=== PATIENT | female | born 1970 | race Caucasian/White ===

== ENCOUNTER 2020-06-24 07:24 | Day surgery (SDC) | payer BC ==
[~2020-06-24 07:24] MED LIST: Lactated Ringers 1,000 ML IV SCH; Lidocaine 1% 4 ML ONE; Lidocaine 1%/Sod Bicarbonate in NS 8.4% 1 ML Syringe IDERM PRN; Midazolam 1 MG/ML 2 ML SDV ONE; Propofol 200 MG/20 ML SDV ONE; Scopolamine 1.5 MG Transdermal Patch TRDERM PRN; Sodium Chloride 0.9% 10 ML Syringe FLUSH PRN
--- NOTE | 2020-06-24 07:37 | PCM.PREANE ---
Preanesthetic Assessment - Procedure Proposed Procedure: diag colonoscopy - Anesthesia/Transfusion/Family Hx Anesthesia History: Prior Anesthesia Without Reaction Family History of Anesthesia Reaction: No Transfusion History: No Prior Transfusion(s) - Review of Systems General: No Symptoms Pulmonary: No Symptoms Cardiovascular: No Symptoms Gastrointestinal: No Symptoms Neurological: Seizure (26 years ago.) Other: Reports: Diabetes (pre), Liver Problems (from seizure meds- they are watching), Thyroid Problems, Depression, Anxiety - Physical Assessment NPO Status Date: 06/24/20 NPO Status Time: 05:30 (12 oz water) Vital Signs: 16 83 142/87 97.1 Height: 5 ft 4 in Weight: 125 kg ASA Class: 3 Mental Status: Alert & Oriented x3 Airway Class: Mallampati = 1 Dentition: Reports: Normal Dentition Thyro-Mental Finger Breadths: 3 Mouth Opening Finger Breadths: 3 ROM/Head Extension: Full Lungs: Clear to Auscultation, Normal Respiratory Effort Cardiovascular: Regular Rate, Regular Rhythm - Lab Values: Laboratory Last Values POC Glucose 110 mg/dL (70-105) H 06/24/20 07:20 - Allergies Allergies/Adverse Reactions: Allergies Allergy/AdvReac Type Severity Reaction Status Date / Time nitrofurantoin Allergy Cannot Verified 06/23/20 10:39 [From Macrobid] Remember phenytoin sodium Allergy Rash Verified 06/23/20 10:39 [From Dilantin] phenytoin sodium extended Allergy Rash Verified 06/23/20 10:39 [From Dilantin] Sulfa (Sulfonamide Allergy Rash Verified 06/23/20 10:39 Antibiotics) sulfamethoxazole Allergy Cannot Verified 06/23/20 10:39 [From Bactrim] Remember trimethoprim [From Bactrim] Allergy Cannot Verified 06/23/20 10:39 Remember - Blood Blood Available: No - Anesthesia Plan Beta Elva: Metoprolol Med Last Dose Date: 06/24/20 Med Last Dose Time: 06:15 - Acknowledgements Anesthesia Type Planned: MAC Pt an Appropriate Candidate for the Planned Anesthesia: Yes Alternatives and Risks of Anesthesia Discussed w Pt/Guardian: Yes Pt/Guardian Understands and Agrees with Anesthesia Plan: Yes PreAnesthesia Questionnaire HEENT History: Reports: Impaired Vision Other HEENT History: wears contacts/glasses Cardiovascular History: Reports: High Cholesterol, Hypertension Other Cardiovascular History: palpitations Respiratory History: Reports: Sleep Apnea Other Respiratory History: upper respiratory infection, bronchitis, cough Gastrointestinal History: Reports: Diverticulosis, Other (See Below) Other Gastrointestinal History: bloating Genitourinary History: Reports: Other (See Below) Other Genitourinary History: bladder infection, elevated creatinine [employer]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: Endometrial Ablation, Other OB/BYN History: hot flashes, irregular menses, menorrhagia, monarch sling procedure Musculoskeletal History: Reports: Arthritis Other Musculoskeletal History: chronic neck "muscle tightness" pain Neurological History: Reports: Headaches, Chronic Other Neuro History: epilepsy, garcia's palsy, tension headaches, motion sickness Psychiatric History: Reports: Anxiety Endocrine/Metabolic History: Reports: Obesity/BMI 30+, Vitamin D Deficiency Other Endocrine/Metabolic History: pre-DM Hematologic History: Reports: None Immunologic History: Reports: None Oncologic (Cancer) History: Reports: None Dermatologic History: Reports: None - Infectious Disease History Infectious Disease History: Reports: None - Past Surgical History Head Surgeries/Procedures: Reports: None Cardiovascular Surgical History: Reports: None GI Surgical History: Reports: None Female Surgical History: Reports: Section, Other (See Below) (bladder sling and ablation) Male Surgical History: Reports: None Neurological Surgical History: Reports: None Oncologic Surgical History: Reports: None Dermatological Surgical History: Reports: None - SUBSTANCE USE Tobacco Use Status *Q: Never Tobacco User Tobacco Use Within Last Twelve Months: No Second Hand Smoke Exposure: No Days Per Week of Alcohol Use: 0 Recreational Drug Use History: No - HOME MEDS Home Medications: Home Meds clonazePAM [Klonopin] 0.25 mg PO BEDTIME 02/14/14 [History] lamoTRIgine [Lamictal] 150 mg PO BID 02/14/14 [History] Metoprolol Tartrate 50 mg PO BID 06/19/15 [History] Simvastatin 20 mg PO BEDTIME 06/19/15 [History] Venlafaxine [Effexor] 150 mg PO DAILY 06/19/15 [History] Ascorbic Acid [Vitamin C] 1,000 mg PO DAILY 06/23/20 [History] Cholecalciferol (Vitamin D3) [Vitamin D3] 2,000 unit PO DAILY 06/23/20 [History] Famotidine [Pepcid] 40 mg PO DAILY 06/23/20 [History] Levothyroxine Sodium [Levothyroxine] 50 mcg PO DAILY 06/23/20 [History] Loratadine [Claritin] 10 mg PO DAILY 06/23/20 [History] Zinc 50 mg PO DAILY 06/23/20 [History] metFORMIN [Glucophage] 1,000 mg PO DAILY 06/23/20 [History] - CURRENT (IN HOUSE) MEDS Current Meds: Current Medications Lactated Ringer's (Ringers, Lactated) 1,000 mls @ 125 mls/hr IV ASDIRECTED MAYA Stop: 06/24/20 23:00 Lidocaine/Sodium Bicarbonate (Lidocaine 1%/Sod Bicarbonate In Ns 8.4% 1 Ml Syringe) 0.25 ml IDERM ONETIME PRN PRN Reason: Prior to IV Start Stop: 06/24/20 23:00 Scopolamine (Scopolamine 1.5 Mg Transdermal Patch) 1.5 mg TRDERM ONETIME PRN PRN Reason: PONV Stop: 06/24/20 18:00 Sodium Chloride (Sodium Chloride 0.9% 10 Ml Syringe) 10 ml FLUSH ASDIRECTED PRN PRN Reason: Keep Vein Open Stop: 06/24/20 23:00 Discontinued Medications Lidocaine HCl (Xylocaine-Mpf 1%) Confirm Administered Dose 4 mls @ as directed .ROUTE .STK-MED ONE Stop: 06/24/20 07:11 Midazolam HCl (Midazolam 1 Mg/Ml 2 Ml Sdv) Confirm Administered Dose 2 mg .ROUTE .STK-MED ONE Stop: 06/24/20 07:12 Propofol (Propofol 200 Mg/20 Ml Sdv) Confirm Administered Dose 400 mg .ROUTE .STK-MED ONE Stop: 06/24/20 07:11
[2020-06-24] MEDS ORDERED: Ondansetron 4 MG/2 ML SDV ONE (08:03)
--- NOTE | 2020-06-24 08:34 | PCM.PRNOTE ---
- Free Text/Narrative Note: Date: 06/24/2020 Procedure: diagnostic colonoscopy Indication: recent initial bout of uncomplicated diverticulitis Endoscopist: Evret Salazar MD Findings: poor prep (patient was unable to complete bowel prep with GoLytely). Diverticulosis throughout the colon. No active inflammation. Two small polyps in rectum removed with cold forceps. Internal and external hemorrhoidal disease. Detailed Report: The patient was taken to the endoscopy suite and placed in left lateral decubitus position. Timeout was performed and monitored anesthesia care was initiated. Visual inspection of the anus revealed external hemorrhoids. Digital rectal exam was unremarkable. The colonoscope was inserted and advanced all the way to the cecum. Prep was poor. The patient did not finish her GoLYTELY prep. There was murky turbid fluid throughout the colon with solid pieces of stool. The ileocecal valve was well visualized. The appendiceal orifice was not well visualized due to poor prep and difficulty accessing the base of the cecum beyond the ileocecal valve. The scope was slowly withdrawn and mucosal surfaces carefully inspected. Irrigation was used to clear mucosal surfaces inspected for pathology. However, prep was inadequate to say that the patient had a complete throat colonoscopy. There was diverticulosis throughout the entire colon. No worrisome lesions were identified. There were 2 small polyps identified in the rectum. These were removed with cold forceps. On retroflexion of the scope within the rectum internal hemorrhoidal disease was noted. Air was suctioned from the colon prior to withdrawal of the scope. The patient tolerated the procedure well.
--- NOTE | 2020-06-24 08:40 | PCM48HPAN ---
Post Anesthesia Note - EVALUATION WITHIN 48HRS OF ANESTHETIC Vital Signs in Normal Range: Yes Patient Participated in Evaluation: Yes Respiratory Function Stable: Yes Airway Patent: Yes Cardiovascular Function Stable: Yes Hydration Status Stable: Yes Pain Control Satisfactory: Yes Nausea and Vomiting Control Satisfactory: Yes Mental Status Recovered: Yes Vital Signs: 127/85 93% 71 16 97.1
[2020-06-24 10:13] VITALS: BP 123/76; PULSE 64
== END 2020-06-24 09:08 | disposition home or self-care (01) ==
LOC: JD.SDS 07:24
PROVIDERS: ATTEND Surgery
DX: K62.1 Rectal polyp (principal); K57.30 Diverticulosis of large intestine without perforation or abscess without bleeding; K64.4 Residual hemorrhoidal skin tags; K64.8 Other hemorrhoids; I10 Essential (primary) hypertension; E78.5 Hyperlipidemia, unspecified; E03.9 Hypothyroidism, unspecified; G47.33 Obstructive sleep apnea (adult) (pediatric); R73.03 Prediabetes; E78.00 Pure hypercholesterolemia, unspecified; E66.01 Morbid (severe) obesity due to excess calories; Z68.42 Body mass index [BMI] 45.0-49.9, adult; Z88.2 Allergy status to sulfonamides; Z88.8 Allergy status to other drugs, medicaments and biological substances; Z79.84 Long term (current) use of oral hypoglycemic drugs; Z79.890 Hormone replacement therapy; Z79.899 Other long term (current) drug therapy; Z98.890 Other specified postprocedural states
CPT/HCPCS: 45380; 82962; J2250; J2405; J2704; J7120; 00811

== ENCOUNTER 2020-11-29 15:58 | Emergency (ER) | payer BC ==
[2020-11-29 16:08] VITALS: BP 147/95; PULSE 73
--- NOTE | 2020-11-29 18:14 | EDM.PDOC ---
ED HPI GENERAL MEDICAL PROBLEM - General Chief Complaint: Flank Pain Stated Complaint: ABDOMINAL PAIN/FLANK PAIN Time Seen by Provider: 11/29/20 18:02 Source of Information: Reports: Patient, RN Notes Reviewed History Limitations: Reports: No Limitations - History of Present Illness INITIAL COMMENTS - FREE TEXT/NARRATIVE: Patient is a 50-year-old female who presents to the ER for the evaluation of her left-sided flank pain. Patient notes that this started pretty suddenly at around 2 PM when they were in the car coming back from [place], she states that she tried to lay flat, to see if this would help the pain. She states that it did not come and go, and was one of the worst pain she is ever had in her life. States she does have a history of diverticulitis and thought initially it was the diverticulitis that she was experiencing the pain from, but she notes that to be more of a dull ache, that will not go away. Due to long wait times in the ER, she did go to the bathroom prior to getting back into an ER room, and she states now that she is pain-free. Patient denies any other sick-like symptoms, fever/chills, cough/shortness of breath, nausea/vomiting/diarrhea. 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 Left Abdomen Pain Score (Numeric/FACES): 7 - Related Data Allergies Allergy/AdvReac Type Severity Reaction Status Date / Time nitrofurantoin Allergy Cannot Verified 11/29/20 16:08 [From Macrobid] Remember phenytoin sodium Allergy Rash Verified 11/29/20 16:08 [From Dilantin] phenytoin sodium extended Allergy Rash Verified 11/29/20 16:08 [From Dilantin] Sulfa (Sulfonamide Allergy Rash Verified 11/29/20 16:08 Antibiotics) sulfamethoxazole Allergy Cannot Verified 11/29/20 16:08 [From Bactrim] Remember trimethoprim [From Bactrim] Allergy Cannot Verified 11/29/20 16:08 Remember Home Meds: Home Meds clonazePAM [Klonopin] 0.25 mg PO BEDTIME 02/14/14 [History] lamoTRIgine [Lamictal] 150 mg PO BID 02/14/14 [History] Metoprolol Tartrate 50 mg PO BID 06/19/15 [History] Simvastatin 20 mg PO BEDTIME 06/19/15 [History] Venlafaxine [Effexor] 150 mg PO DAILY 06/19/15 [History] Ascorbic Acid [Vitamin C] 1,000 mg PO DAILY 06/23/20 [History] Cholecalciferol (Vitamin D3) [Vitamin D3] 2,000 unit PO DAILY 06/23/20 [History] Famotidine [Pepcid] 40 mg PO DAILY 06/23/20 [History] Levothyroxine Sodium [Levothyroxine] 50 mcg PO DAILY 06/23/20 [History] Loratadine [Claritin] 10 mg PO DAILY 06/23/20 [History] Zinc 50 mg PO DAILY 06/23/20 [History] metFORMIN [Glucophage] 1,000 mg PO DAILY 06/23/20 [History] Past Medical History HEENT History: Reports: Impaired Vision Other HEENT History: wears contacts/glasses Cardiovascular History: Reports: High Cholesterol, Hypertension Other Cardiovascular History: palpitations Respiratory History: Reports: Sleep Apnea Other Respiratory History: upper respiratory infection Gastrointestinal History: Reports: Diverticulosis, Other (See Below) Other Gastrointestinal History: bloating Genitourinary History: Reports: Other (See Below) Other Genitourinary History: bladder infection, elevated creatinine [employer]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: Reports: Other 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: hot flashes, irregular menses, menorrhagia, monarch sling procedure Musculoskeletal History: Reports: Arthritis Other Musculoskeletal History: chronic neck "muscle tightness" pain Neurological History: Reports: Headaches, Chronic Other Neuro History: epilepsy, garcia's palsy Psychiatric History: Reports: Anxiety Endocrine/Metabolic History: Reports: Obesity/BMI 30+ Other Endocrine/Metabolic History: pre-DM Hematologic History: Reports: None Immunologic History: Reports: None Oncologic (Cancer) History: Reports: None Dermatologic History: Reports: None - Infectious Disease History Infectious Disease History: Reports: None - Past Surgical History Head Surgeries/Procedures: Reports: None Cardiovascular Surgical History: Reports: None GI Surgical History: Reports: None Female Surgical History: Reports: Section, Other (See Below) Neurological Surgical History: Reports: None Oncologic Surgical History: Reports: None Dermatological Surgical History: Reports: None Social & Family History - Family History Family Medical History: No Pertinent Family History - Tobacco Use Tobacco Use Status *Q: Never Tobacco User - Caffeine Use Caffeine Use: Reports: None Caffeine Use Comment: rare - Recreational Drug Use Recreational Drug Use: No ED ROS GENERAL - Review of Systems Review Of Systems: Comprehensive ROS is negative, except as noted in HPI. ED EXAM, RENAL/ - Physical Exam Exam: See Below Exam Limited By: No Limitations General Appearance: Alert, WD/WN, No Apparent Distress Respiratory/Chest: No Respiratory Distress, Lungs Clear, Normal Breath Sounds, No Accessory Muscle Use, Chest Non-Tender Cardiovascular: Normal Peripheral Pulses, Regular Rate, Rhythm, No Edema GI/Abdominal: Normal Bowel Sounds, Soft, Non-Tender, No Distention, No Mass Extremities: Normal Inspection, Normal Capillary Refill Neurological: Alert, Oriented, Normal Cognition, No Motor/Sensory Deficits Psychiatric: Normal Affect, Normal Mood Skin Exam: Warm, Dry, Intact, Normal Color, No Rash Course - Vital Signs Last Recorded V/S: Last Vital Signs Temp 97.8 F 11/29/20 16:05 Pulse 73 11/29/20 16:05 Resp 14 11/29/20 16:05 BP 147/95 H 11/29/20 16:05 Pulse Ox 97 11/29/20 16:05 - Orders/Labs/Meds Orders: Active Orders 24 hr Category Date Time Status CBC WITH AUTO DIFF [HEME] Stat Lab 11/29/20 17:49 Ordered CMP [COMPREHENSIVE METABOLIC PN,CMP] [CHEM] Stat Lab 11/29/20 17:50 Ordered URINALYSIS W/MICROSCOPIC [UA W/MICROSCOPIC] [URIN] Stat Lab 11/29/20 17:50 Ordered - Re-Assessments/Exams Free Text/Narrative Re-Assessment/Exam: 11/29/20 18:13 Patient presents to the ER for the evaluation of her left flank pain. This does sound like maybe she passed her kidney stone while waiting to be roomed in the ER. We will go ahead and observe her for a short period of time, patient did have an IV placed, and a CBC and CMP were collected before I got into the room. Patient will try to give us a urine sample if she feels she has to pee. We will likely hopefully get her going home, within the hour if she remains pain- free. Departure - Departure Time of Disposition: 18:34 Disposition: Home, Self-Care 01 Condition: Good Clinical Impression: Acute flank pain - Discharge Information *PRESCRIPTION DRUG MONITORING PROGRAM REVIEWED*: No *COPY OF PRESCRIPTION DRUG MONITORING REPORT IN PATIENT ALEXANDRA: No Instructions: Flank Pain, Adult, [id number] Referrals: Ashlyn Henley PA-C [Primary Care Provider] - Forms: ED Department Discharge Additional Instructions: You were evaluated in the ER today for your left-sided flank pain. It was likely you are suffering from a kidney stone, that you managed to void out prior to being seen by her provider at this ER visit. Laboratory evaluation was taken at this time, and everything was within normal limits. No further work-up was done at today's visit for a possible kidney stone. You were observed in the ER for some time, and your pain did not return while being in the ER. Do not hesitate to return to the ER if your symptoms change or worsen. Sepsis Event Note (ED) - Focused Exam Vital Signs: Vital Signs Temp Pulse Resp BP Pulse Ox 11/29/20 16:05 97.8 F 73 14 147/95 H 97 - My Orders Last 24 Hours: My Active Orders 11/29/20 17:49 CBC WITH AUTO DIFF [HEME] Stat 11/29/20 17:50 CMP [COMPREHENSIVE METABOLIC PN,CMP] [CHEM] Stat URINALYSIS W/MICROSCOPIC [UA W/MICROSCOPIC] [URIN] Stat - Assessment/Plan Last 24 Hours: My Active Orders 11/29/20 17:49 CBC WITH AUTO DIFF [HEME] Stat 11/29/20 17:50 CMP [COMPREHENSIVE METABOLIC PN,CMP] [CHEM] Stat URINALYSIS W/MICROSCOPIC [UA W/MICROSCOPIC] [URIN] Stat
== END 2020-11-29 19:04 | disposition home or self-care (01) ==
LOC: JD.ED 15:58
DX: R10.9 Unspecified abdominal pain (principal); E78.00 Pure hypercholesterolemia, unspecified; I10 Essential (primary) hypertension; G40.909 Epilepsy, unspecified, not intractable, without status epilepticus; E66.9 Obesity, unspecified; Z68.42 Body mass index [BMI] 45.0-49.9, adult; Z88.1 Allergy status to other antibiotic agents; Z88.2 Allergy status to sulfonamides; Z79.899 Other long term (current) drug therapy; Z88.8 Allergy status to other drugs, medicaments and biological substances
CPT/HCPCS: 36415; 80053; 81001; 85025; 99283; 99284

== ENCOUNTER 2022-01-05 21:23 | Emergency (ER) | payer BC ==
[2022-01-05 22:42] VITALS: BP 150/93; PULSE 72
[2022-01-05] MEDS ORDERED: HYDROmorphone 1 MG/ML Syringe IM ONE (23:31)
[2022-01-05] MEDS ORDERED: Orphenadrine 100 MG Tab.ER PO STA (23:31)
[2022-01-06] MEDS ORDERED: Ibuprofen 600 MG Tab PO ONE (00:19)
[2022-01-06] MEDS ORDERED: Ondansetron 4 MG Tab.DIS PO ONE (00:25)
== END 2022-01-06 00:48 | disposition home or self-care (01) ==
LOC: JD.ED 21:23
DX: M62.830 Muscle spasm of back (principal); I10 Essential (primary) hypertension; E66.9 Obesity, unspecified; Z68.30 Body mass index [BMI] 30.0-30.9, adult; Z88.8 Allergy status to other drugs, medicaments and biological substances; Z88.2 Allergy status to sulfonamides; Z79.899 Other long term (current) drug therapy; Z79.84 Long term (current) use of oral hypoglycemic drugs
CPT/HCPCS: 81001; 96372; 99283; A9270; J1170

== ENCOUNTER 2023-10-22 11:15 | Emergency (ER) | payer BC ==
[2023-10-22 11:35] VITALS: PULSE 88
[2023-10-22 12:35] LABS: APPEARANCE,URINE SLT CLOUDY (Clear); BILIRUBIN,URINE 1+ (Negative); COLOR,URINE YELLOW (Yellow); GLUCOSE,URINE NEGATIVE (Negative); KETONES,URINE TRACE (Negative); LEUKOCYTE ESTERASE,URINE NEGATIVE (Negative); NITRITE,URINE NEGATIVE (Negative); OCCULT BLOOD,URINE NEGATIVE (Negative); PROTEIN,URINE NEGATIVE (Negative); UROBILINOGEN,URINE 0.2 (0.2-1.0)
[2023-10-22 12:35] LABS: BASOPHILS PERCENT AUTO 0.4 % (0.0-1.0); EOSINOPHILS ABSOLUTE AUTO 0.1 K/mm3 (0.0-0.4); HEMATOCRIT 45.4 % (37.0-47.0); IMMATURE GRAN ABSOLUTE AUTO 0.02 K/mm3 (0.00-0.05); IMMATURE GRAN PERCENT AUTO 0.3 % (0.0-0.4); LYMPHOCYTES ABSOLUTE AUTO 1.4 K/mm3 (1.0-4.8); LYMPHOCYTES PERCENT AUTO 19.3 % (24.0-44.0); MEAN CORPUSCULAR HEMOGLOBIN 27.7 pg (28.0-32.0); MEAN CORPUSCULAR VOLUME 83.9 fl (83.0-99.0); MEAN PLATELET VOLUME 8.8 fl (9.4-12.3); MONOCYTES ABSOLUTE AUTO 0.8 K/mm3 (0.0-0.8); MONOCYTES PERCENT AUTO 11.5 % (0.0-8.0); NEUTROPHILS ABSOLUTE AUTO 4.9 K/mm3 (1.8-7.7); NEUTROPHILS PERCENT AUTO 67.5 % (41.0-71.0); PLATELET COUNT,PLT 276 K/mm3 (150-400); RED BLOOD CELL COUNT 5.41 M/mm3 (4.10-5.30); WHITE BLOOD CELL COUNT,WBC 7.21 K/mm3 (3.9-11.3)
[2023-10-22] MEDS: Iopamidol 612 MG/ML 100 ML Bottle IVPUSH ONE (12:50)
[2023-10-22] MEDS: Sodium Chloride 0.9% 10 ML Syringe FLUSH ONE (12:50)
[2023-10-22 12:58] LABS: A/G RATIO 1.1 (1-2); ALBUMIN 3.9 g/dl (3.4-5.0); ANION GAP 10.7 (5-15); BILIRUBIN TOTAL 0.6 mg/dL (0.2-1.0); CALCIUM 9.5 mg/dL (8.5-10.1); CREATININE 1.2 mg/dL (0.55-1.02); EST CRCL DRUG DOSING (CG) 46.82 mL/min; POTASSIUM,K 3.7 mEq/L (3.5-5.1); PROTEIN TOTAL,TP 7.6 g/dl (6.4-8.2)
[2023-10-22 13:05] LABS: LACTIC ACID 0.8 mmol/L (0.4-2.0)
[2023-10-22 15:56] VITALS: BP 123/84
== END 2023-10-22 15:12 | disposition home or self-care (01) ==
LOC: JD.ED 11:15
DX: K42.9 Umbilical hernia without obstruction or gangrene (principal); R19.7 Diarrhea, unspecified; I10 Essential (primary) hypertension; E78.00 Pure hypercholesterolemia, unspecified; E66.9 Obesity, unspecified; Z68.41 Body mass index [BMI] 40.0-44.9, adult; Z79.899 Other long term (current) drug therapy; Z88.5 Allergy status to narcotic agent; Z88.8 Allergy status to other drugs, medicaments and biological substances; Z79.84 Long term (current) use of oral hypoglycemic drugs; Z88.2 Allergy status to sulfonamides
CPT/HCPCS: 36415; 74177; 80053; 81003; 83605; 85025; 99284; J3490; Q9967

== ENCOUNTER 2023-11-24 07:56 | Day surgery (SDC) | payer BC ==
[~2023-11-24 07:56] MED LIST changes: +Dexamethasone 4 MG/ML 5 ML MDV ONE; +EPINEPHrine 1 MG/ML SDV ONE; +Ketamine 200 MG/20 ML MDV ONE; -Lactated Ringers 1,000 ML IV SCH; -Lidocaine 1% 4 ML ONE; +Lidocaine 1% 5 ML VIAL ONE; -Lidocaine 1%/Sod Bicarbonate in NS 8.4% 1 ML Syringe IDERM PRN; +Lidocaine 2% 5 ML SDV ONE; +Ondansetron 4 MG/2 ML SDV ONE; +Rocuronium 50 MG/5 ML Vial ONE; +Ropivacaine 0.5% 5 MG/ML 30 ML SDV ONE; -Scopolamine 1.5 MG Transdermal Patch TRDERM PRN; +Sodium Chloride 0.9% 250 ML ONE; +Succinylcholine 200 MG/10 ML MDV ONE; +ceFAZolin 2 GM Vial ONE; +fentaNYL 100 MCG/2 ML SDV ONE
[2023-11-24] MEDS ORDERED: ePHEDrine 50 MG/ML SDV ONE (08:07)
[2023-11-24] MEDS ORDERED: ceFAZolin 2 GM Vial ONE ×2 (08:07→10:48)
[2023-11-24] MEDS: Lactated Ringers 1,000 ML IV SCH (08:25)
[2023-11-24] MEDS: Celecoxib 100 MG Cap PO SCH (08:30)
[2023-11-24] MEDS: Acetaminophen 325 MG Tab PO SCH (08:30)
[2023-11-24] MEDS: Scopalamine 1mg/3day Transdermal Patch TOP ONE (08:35)
[2023-11-24] MEDS ORDERED: Rocuronium 50 MG/5 ML Vial ONE (08:40)
[2023-11-24] MEDS ORDERED: Sugammadex Sodium 200 MG/2 ML VIAL IV ONE (09:14)
[2023-11-24] MEDS ORDERED: Lactated Ringers 1,000 ML ONE (09:20)
[2023-11-24] MEDS: EPINEPHrine 1 MG/ML SDV ONE (09:20)
[2023-11-24] MEDS: Bupivacaine 0.5% 30 ML SDV ONE (09:20)
[2023-11-24] MEDS ORDERED: Ondansetron 4 MG/2 ML SDV IVPUSH PRN ×2 (09:37→17:40)
[2023-11-24] MEDS ORDERED: HYDROmorphone 0.5 MG/0.5 ML Syringe IVPUSH PRN (09:37)
[2023-11-24] MEDS: fentaNYL 100 MCG/2 ML SDV IVPUSH PRN (10:57)
[2023-11-24] MEDS: oxyCODONE 5 MG Tab PO PRN (12:55)
[2023-11-24] MEDS: Sodium Chloride 0.9% 10 ML Syringe FLUSH SCH (16:08)
[2023-11-24] MEDS ORDERED: Acetaminophen 325 MG Tab PO PRN (17:29)
[2023-11-24] MEDS ORDERED: LORazepam 0.5 MG Tab PO PRN (17:32)
[2023-11-24] MEDS ORDERED: Simethicone 80 MG Tab.Chew PO PRN (17:33)
[2023-11-24] MEDS ORDERED: diphenhydrAMINE 25 MG Cap PO PRN (17:34)
[2023-11-24] MEDS ORDERED: Ondansetron 4 MG in Sodium Chloride 0.9% 50 ML IV PRN (17:34)
[2023-11-24] MEDS ORDERED: Phenol 1.4% Oral Spray 177 ML Bottle MUCMEM PRN (17:35)
[2023-11-24] MEDS ORDERED: traMADol 50 MG Tab PO PRN ×2 (17:36→17:39)
[2023-11-24] MEDS: Ketorolac 15 MG/ML SDV IVPUSH SCH (17:57)
[2023-11-24] MEDS: Metoprolol Tartrate 50 MG Tab PO SCH (20:04)
[2023-11-24] MEDS: lamoTRIgine 100 MG Tab PO SCH (20:04)
[2023-11-24 20:07] VITALS: BP 106/59; PULSE 83
[2023-11-25] MEDS ORDERED: Rosuvastatin 10 MG Tab PO SCH (09:00)
[2023-11-25] MEDS ORDERED: Levothyroxine 75 MCG Tab PO SCH (09:00)
[2023-11-25] MEDS ORDERED: Venlafaxine 75 MG Cap.ER PO SCH (09:30)
== END 2023-11-25 08:10 | disposition home or self-care (01) ==
LOC: JD.SDS 07:56 → JD.MS 16:11 → JD.SDS 11-25 08:10
PROVIDERS: ATTEND Surgery
DX: K42.9 Umbilical hernia without obstruction or gangrene (principal); I10 Essential (primary) hypertension; E78.00 Pure hypercholesterolemia, unspecified; F41.9 Anxiety disorder, unspecified; Z79.899 Other long term (current) drug therapy
CPT/HCPCS: 49593; A9270; C1781; J0171; J0330; J0665; J0690; J1100; J1885; J2250; J2405; J2704; J2795; J3010; J3490; J7050; J7120; 00752